=== PATIENT | male | born 1945 | race Caucasian/White ===

== ENCOUNTER 2016-05-27 14:05 | Observation (INO) | payer MEDICARE, MEDICAID ==
[2016-05-27 14:06] VITALS: BMI 29.5
[2016-05-27] MEDS ORDERED: SODIUM CHLORIDE 0.9% 10 ML FLUSH FLUSH PRN (14:34)
[2016-05-27] MEDS ORDERED: LORAZEPAM 2 MG/ML VIAL IV ONE ×2 (14:34→15:03)
[2016-05-27] MEDS ORDERED: NS 500 ML IV ONE (15:04)
[2016-05-27] MEDS ORDERED: LORAZEPAM 2 MG/ML VIAL IM ONE (15:11)
[2016-05-27 15:24] LABS: LEUKOCYTES/URINE NEG (NEGATIVE); NITRITE/URINE NEG (NEGATIVE); RBC/URINE 0-2 (0-2); URINE OCCULT BLOOD 1+ (NEG/TRACE); WBC/URINE 0-2 (0-2)
--- NOTE | 2016-05-27 15:26 | EDPRACDOC ---
ED Alcohol/Substance Withdrawl - General Information Information Source: Patient Mode of Arrival: Ambulance - History of Present Illness Onset: 2 WEEKS HPI: PT PRESENTS TODAY WITH REPORTED BLOODY STOOLS AND ALCOHOL WITHDRAWAL SYMPTOMS. LAST INTAKE 1 HOUR PRIOR TO COMING TO ED. PT STATES THAT HE HAS BEEN A HEAVY DRINKER SINCE HE WAS 11 YEARS OLD. HE USUALLY DRINKS 1/5 OF LIQUOR DAILY, BUT RECENTLY HAS ADDED 24 BEERS DAILY FOR THE PAST 2 WEEKS. PT STATES THAT HE WOULD LIKE HELP TO QUIT DRINKING. DENIES SI/HI. DENIES CP, SHOB, ABD PAIN, N/V/ D. NO APPARENT DISTRESS. Stopped/Reduced Use For: Hours Altered Mental Status For: Reports: None Relevant History: Reports: Alcoholism Current Substance of Use: Reports: Alcohol Circumstances: Reports: Withdrawal Symptoms Severity: Moderate Associated Signs & Symptoms: Reports: Anxiety, Nausea, Tremors, Diaphoresis <Violeta Kilgore - Last Filed: 05/27/16 15:28> <Nuzhat Macedo - Last Filed: 05/28/16 15:27> - General Information Chief Complaint: Alcohol Withdrawal Stated Complaint: DETOX,BLOODY STOOL Time Seen by Provider: 05/27/16 14:27 Home Medications: Home Medications Amlodipine [Norvasc] 10 mg PO DAILY 12/25/14 Metoprolol Tartrate [Lopressor] 12.5 mg PO BID 12/25/14 Nitroglycerin 0.4 mg SL [id number] PRN 12/25/14 Simvastatin [Zocor] 20 mg PO HS 12/25/14 Aspirin (Enteric Coated) [Halfprin] 81 mg PO DAILY 02/16/15 Pantoprazole Sodium 40 mg PO DAILY 03/12/15 Meloxicam 7.5 mg PO BID #20 tablet 06/10/15 Potassium Chloride [K-Dur] 10 meq PO DAILY 06/10/15 Hydrocodone Bit/Acetaminophen [[place] 5-325 Tablet] 1 tab PO Q4-6H PRN 07/21/15 Allergies/Adverse Reactions: Allergies Allergy/AdvReac Type Severity Reaction Status Date / Time No Known Allergies Allergy Verified 07/21/15 21:15 - Treatment Prior to ED Arrival Reported Medications/Treatment [facility] Treatment BLS IV No <Violeta Kilgore - Last Filed: 05/27/16 15:28> - Treatment Prior to ED Arrival Reported Medications/Treatment [facility] Treatment BLS IV No <MacedoLina ellisondy N - Last Filed: 05/28/16 15:27> ED Past Medical History - History Reviewed Yes Nurses notes reviewed and agree except as marked - Patient Medical History Neurological History: Reports: Cerebrovascular Accident (WITH MILD RESIDUAL LEFT SIDED WEAKNESS) Cardiac History: Reports: Coronary Artery Disease (S/P CABG), Hypertension, Congestive Heart Failure, Heart Attack, Cardiac Catheterization, CABG (2009 AT [facility]), Hypercholesterolemia Respiratory History: Reports: COPD, Pulmonary Embolism GI/ History: Reports: Gastroesophageal Reflux Musculoskeletal History: Reports: Arthritis (HANDS AND NECK) Psychological History: Reports: Depression (1992). Denies: Anxiety, Schizophrenia, Bipolar Disorder Systemic History: Denies: Cancer Surgical History: Reports: Cholecystectomy, CABG (2009 AT [facility]), Cardiac Catheterization - Family Medical History Reports: Hypertension, Cancer (MOM). Denies: Diabetes, Stroke, Cardiac Disorders - Social Medical History Smoking Status: Never smoker <Violeta Kilgore - Last Filed: 05/27/16 15:28> - Patient Medical History Cardiac History: Reports: Stress Test (DONE THIS PAST FEBRUARY [facility] IN [facility] Other (CHRONIC CHEST PAIN.) - Social Medical History ETOH: Alcoholic Lives With: Other (RELEASED FROM [facility]PROXIMATELY 3 MONTHS AGO. STATES HE HAS BEEN HOMELESS SINCE.) Lives In: Homeless <Lina Macedody N - Last Filed: 05/28/16 15:27> EDM Review of Systems - Review of Systems ROS Negative Except as Marked: Yes All systems reviewed and were negative except as marked Constitutional: No Symptoms Reported Ears: No Symptoms Reported Throat: No Symptoms Reported Nose: No Symptoms Reported Respiratory: No Symptoms Reported Cardiovascular: No Symptoms Reported Gastrointestinal: Melena Genitourinary: No Symptoms Reported Neurological: No Symptoms Reported Musculoskeletal: No Symptoms Reported Integumentary: No Symptoms Reported Psychiatric: Anxiety <Violeta Kilgore - Last Filed: 05/27/16 15:28> - Physical Exam Constitutional: No apparent distress, Alert (Awake), Other Oriented to: Time, Person, Place Last recorded Vital Signs: Last Vital Signs Temp 97.7 F 05/27/16 14:25 Pulse 84 05/27/16 15:16 Resp 20 05/27/16 15:16 BP 164/85 05/27/16 15:16 Pulse Ox 93 05/27/16 15:16 Oxygen Pulse Oxygen Saturation 93 O2 Device Room Air Oxygen Flow Rate Fraction of Inspired Oxygen ( FIO2) - HEENT Head: Normal Eye Exam: Normal Oropharynx: Normal Neck: Normal, Denies Pain, Midline - Respiratory/Cardiovascular Respiratory: Normal - CTA Cardiovascular: Normal - GI Palpation: Normal Tenderness: Non tender - Musculoskeletal Back: Normal Extremities: Normal - Integumentary Skin: Clammy, Flushed Lymphatics: Normal - Neurologic Cerebellar: Tremor Mood Description: Appropriate, Calm Thought: Coherent Perception: Normal <JameVioleta K - Last Filed: 05/27/16 15:28> - Physical Exam Last recorded Vital Signs: Last Vital Signs Temp 97.7 F 05/27/16 14:25 Pulse 84 05/27/16 15:16 Resp 20 05/27/16 15:16 BP 164/85 05/27/16 15:16 Pulse Ox 93 05/27/16 15:16 Oxygen Pulse Oxygen Saturation 93 O2 Device Room Air Oxygen Flow Rate Fraction of Inspired Oxygen ( FIO2) - GI Rectal Exam: Normal, Heme negative stool. negative: Blood Stool: Brown <Nuzhat Macedo N - Last Filed: 05/28/16 15:27> CIWA - Clinical [place] Withdrawal Assessment Re-evaluation 1 Nausea & Vomitting: No Nausea & No Vomiting Tremor: No Tremor Paroxysmal Sweats: No sweat visible Anxiety: No anxiety, at ease Agitation: Normal activity Tactile Disturbances: None Auditory Disturbances: None Visual Disturbances: None Headache, Fullness in Head: Not Present Orientation & clouding of Sensorium: Oriented and can do serial additions Total CIWA Score: 0 Re-evaluation 2 Nausea & Vomitting: No Nausea & No Vomiting Tremor: Not visible, but can be felt fingertip to fingertip Paroxysmal Sweats: No sweat visible Anxiety: No anxiety, at ease Agitation: Normal activity Tactile Disturbances: None Auditory Disturbances: None Visual Disturbances: None Headache, Fullness in Head: Not Present Orientation & clouding of Sensorium: Oriented and can do serial additions Total CIWA Score: 1 <Nuzhat Macedo N - Last Filed: 05/28/16 15:27> Initial Evaluation Apperance: Casual, Soiled, Stated Age Attitude: Cooperative Mood: Euthymic Affect: Congruent w/ mood Insight: Good Judgement: Good Memory Description: Intact Delusion Description: Reports: Not Present Hallucinations Severity: Reports: None Hallucinations affecting more than one sensory system: No <Violeta Kilgore - Last Filed: 05/27/16 15:28> ED Alcohol/Sub/Withdrawal Exam - Neurologic Oriented to: Time, Person, Place Stimuli Response: Verbal Stimuli Memory Impairment: Normal CN: Normal Motor Function Unable to Test or Normal: Normal Cerebellar Function: Tremor Thought: Coherent Affect: Appropriate Perception: Normal Insight: Below Average Judgement: Below Average <Violeta Kilgore - Last Filed: 05/27/16 15:28> - EKG EKG #1 EKG Time: 15:14 -: Yes EKG interpreted by me Rate: bpm: 78 [place]: Normal Rhythm: NSR Block: None Hypertrophy: None ST: Normal <Violeta Kilgore - Last Filed: 05/27/16 15:28> - Re-evaluation Re-evaluation 1 Re-evaluation Time: 16:02 (WILL APPEARING VERY COMFORTABLE. SEE CIWA SCORE) UNCLEAR PATIENT 'S MOTIVATION. HE STATES HE DETOX BECAUSE HE IS TIRED OF BEING IN CHRONIC AND THE WRAP IS OF ALCOHOL. HOWEVER IS CURRENTLY HOMELESS HE HAS TRIED TO FIND A PLACE TO STAY ALL DAY LONG (WITH FRIENDS OR CHART HOUSE) AND HAS BEEN UNSUCCESSFUL WITH THIS. Re-evaluation 2 Re-evaluation Time: 18:00 PATIENT LYING PERFECTLY STILL WHEN HE IS ALONE, WITNESSED THROUGH THE WINDOW. HOWEVER, WHEN A HEALTHCARE PROVIDER WALKS IN HIS ROOM, HE STARTS SHAKING FORCEFULLY. WHEN THE PROVIDER LEAVES, HE RETURNS TO LAYING STILL. - Results 05/27/16 15:20 05/27/16 15:20 WBC 8.2 xk/uL (3.8-10.8) 05/27/16 15:20 RBC 4.17 xM/uL (4.70-6.10) L 05/27/16 15:20 Hgb 12.7 g/dL (14.0-18.0) L 05/27/16 15:20 Hct 37.3 % (42-52) L 05/27/16 15:20 MCV 90 fL (80-94) 05/27/16 15:20 MCH 30.5 pg (27-32) 05/27/16 15: MCHC 34.1 g/dl (33-36) 05/27/16 15:20 RDW 15.6 % (11.5-14.5) H 05/27/16 15:20 Plt Count 219 xk/uL (130-400) 05/27/16 15:20 MPV 8.3 fL (7.4-10.4) 05/27/16 15:20 Neut % (Auto) 58.3 % (45-76) 05/27/16 15:20 Lymph % (Auto) 27.3 % (17-44) 05/27/16 15:20 [place] % (Auto) 10.2 % (3-10) H 05/27/16 15:20 Eos % (Auto) 3.1 % (0-5) 05/27/16 15:20 Baso % (Auto) 1.1 % (0-2) 05/27/16 15:20 Absolute Neuts (auto) 4.76 xk/uL (1.7-8.2) 05/27/16 15:20 Absolute Lymphs (auto) 2.21 xk/uL (0.65-4.75) 05/27/16 15:20 Sodium 139 mEq/L (137-146) 05/27/16 15:20 Potassium 3.9 mEq/L (3.5-5.1) 05/27/16 15:20 Chloride 103 mEq/L (98-107) 05/27/16 15:20 Carbon Dioxide 21 mMOL/L (22-33) L 05/27/16 15:20 Anion Gap 19 mEq/L (8-16) H 05/27/16 15:20 BUN 10 MG/DL (9-20) 05/27/16 15:20 Creatinine 0.90 MG/DL (0.66-1.25) 05/27/16 15:20 Estimated GFR (MDRD) > 60 mL/min (>=60) 05/27/16 15:20 Glucose 80 MG/DL (70-99) 05/27/16 15:20 Calculated Osmolality 266 MOs/Kg (270-290) L 05/27/16 15:20 Calcium 8.9 MG/DL (8.4-10.2) 05/27/16 15:20 Corrected Calcium 9.1 MG/DL (8.4-10.2) 05/27/16 15:20 Total Bilirubin 0.8 MG/DL (0.2-1.3) 05/27/16 15:20 AST 24 IU/L (17-59) 05/27/16 15:20 ALT 40 IU/L (21-72) 05/27/16 15:20 Alkaline Phosphatase 62 IU/L (50-160) 05/27/16 15:20 Troponin I < 0.01 ng/mL (<.04) 05/27/16 15:20 Total Protein 6.8 G/DL (6.3-8.2) 05/27/16 15:20 Albumin 3.8 G/DL (3.5-5.0) 05/27/16 15:20 Urine Color Yellow 05/27/16 15:00 Urine Clarity Clear 05/27/16 15:00 Urine pH 5.0 (5.0-8.0) 05/27/16 15:00 Ur Specific Challenge 1.005 (1.003-1.035) 05/27/16 15:00 Urine Protein Neg (NEG/TRACE) 05/27/16 15:00 Urine Glucose (UA) Neg (NEGATIVE) 05/27/16 15:00 Urine Ketones Neg (NEGATIVE) 05/27/16 15:00 Urine Occult Blood 1+ (NEG/TRACE) H 05/27/16 15:00 Urine Nitrite Neg (NEGATIVE) 05/27/16 15:00 Urine Bilirubin Neg (NEGATIVE) 05/27/16 15:00 Urine Urobilinogen <2.0 MG/DL (0-1) 05/27/16 15:00 Ur Leukocyte Esterase Neg (NEGATIVE) 05/27/16 15:00 Urine RBC 0-2 (0-2) 05/27/16 15:00 Urine WBC 0-2 (0-2) 05/27/16 15:00 Ur Epithelial Cells Occ 05/27/16 15:00 Urine Bacteria Few (NEG/FEW) 05/27/16 15:00 Urine Mucus Occ (NEG/OCC) 05/27/16 15:00 Urine Opiates Screen Neg (NEGATIVE) 05/27/16 15:00 Ur Oxycodone Screen Neg (NEGATIVE) 05/27/16 15:00 Urine Methadone Screen Neg (NEGATIVE) 05/27/16 15:00 Ur Barbiturates Screen Neg (NEGATIVE) 05/27/16 15:00 Ur Tricyclics Screen Neg (NEGATIVE) 05/27/16 15:00 Ur Phencyclidine Scrn Neg (NEGATIVE) 05/27/16 15:00 Ur Amphetamines Screen Neg (NEGATIVE) 05/27/16 15:00 U Methamphetamines Scrn Neg (NEGATIVE) 05/27/16 15:00 Urine MDMA Screen Neg (NEGATIVE) 05/27/16 15:00 U Benzodiazepines Scrn Neg (NEGATIVE) 05/27/16 15:00 Urine Cocaine Screen Neg (NEGATIVE) 05/27/16 15:00 Ur THC Screen Neg (NEGATIVE) 05/27/16 15:00 Plasma/Serum Ethyl Alc 0.08 % (<0.01) H 05/27/16 15:20 Lab Results 05/27/16 05/27/16 05/27/16 15:20 15:20 15:00 WBC 8.2 RBC 4.17 L Hgb 12.7 L Hct 37.3 L MCV 90 MCH 30.5 MCHC 34.1 RDW 15.6 H Plt Count 219 MPV 8.3 Neut % (Auto) 58.3 Lymph % (Auto) 27.3 [place] % (Auto) 10.2 H Eos % (Auto) 3.1 Baso % (Auto) 1.1 Absolute Neuts (auto) 4.76 Absolute Lymphs (auto) 2.21 Sodium 139 Potassium 3.9 Chloride 103 Carbon Dioxide 21 L Anion Gap 19 H BUN 10 Creatinine 0.90 Estimated GFR (MDRD) > 60 Glucose 80 Calculated Osmolality 266 L Calcium 8.9 Corrected Calcium 9.1 Total Bilirubin 0.8 AST 24 ALT 40 Alkaline Phosphatase 62 Troponin I < 0.01 Total Protein 6.8 Albumin 3.8 Urine Color Yellow Urine Clarity Clear Urine pH 5.0 Ur Specific Challenge 1.005 Urine Protein Neg Urine Glucose (UA) Neg Urine Ketones Neg Urine Occult Blood 1+ H Urine Nitrite Neg Urine Bilirubin Neg Urine Urobilinogen <2.0 Ur Leukocyte Esterase Neg Urine RBC 0-2 Urine WBC 0-2 Ur Epithelial Cells Occ Urine Bacteria Few Urine Mucus Occ Urine Opiates Screen Ur Oxycodone Screen Urine Methadone Screen Ur Barbiturates Screen Ur Tricyclics Screen Ur Phencyclidine Scrn Ur Amphetamines Screen U Methamphetamines Scrn Urine MDMA Screen U Benzodiazepines Scrn Urine Cocaine Screen Ur THC Screen Plasma/Serum Ethyl Alc 0.08 H 05/27/16 15:00 WBC RBC Hgb Hct MCV MCH MCHC RDW Plt Count MPV Neut % (Auto) Lymph % (Auto) [place] % (Auto) Eos % (Auto) Baso % (Auto) Absolute Neuts (auto) Absolute Lymphs (auto) Sodium Potassium Chloride Carbon Dioxide Anion Gap BUN Creatinine Estimated GFR (MDRD) Glucose Calculated Osmolality Calcium Corrected Calcium Total Bilirubin AST ALT Alkaline Phosphatase Troponin I Total Protein Albumin Urine Color Urine Clarity Urine pH Ur Specific Challenge Urine Protein Urine Glucose (UA) Urine Ketones Urine Occult Blood Urine Nitrite Urine Bilirubin Urine Urobilinogen Ur Leukocyte Esterase Urine RBC Urine WBC Ur Epithelial Cells Urine Bacteria Urine Mucus Urine Opiates Screen Neg Ur Oxycodone Screen Neg Urine Methadone Screen Neg Ur Barbiturates Screen Neg Ur Tricyclics Screen Neg Ur Phencyclidine Scrn Neg Ur Amphetamines Screen Neg U Methamphetamines Scrn Neg Urine MDMA Screen Neg U Benzodiazepines Scrn Neg Urine Cocaine Screen Neg Ur THC Screen Neg Plasma/Serum Ethyl Alc - Additional Information I THINK THE PATIENT IS USING THE ED FOR SECONDARY GAIN (HOUSING). HOWEVER, GIVEN HIS AGE AND ALCOHOL ABUSE, ODETTE OR DT ARE POSSIBLE. WILL MONITOR OVERNIGHT. DISCHARGE MAY BE REASONABLE IN THE AM IF STABLE OVERNIGHT. <Nuzhat Macedo N - Last Filed: 05/28/16 15:27> <Violeat Kilgore - Last Filed: 05/27/16 15:28> - Departure Disposition: Admit to <Nuzhat Macedo - Last Filed: 05/28/16 15:27> - Departure Final Diagnosis: Alcohol abuse, Malingering, Chronic chest pain
[2016-05-27 15:33] LABS: ALL NEG? YES; MDMA* NEG (NEGATIVE); METHAMPHETAMINES NEG (NEGATIVE); OXYCODONE NEG (NEGATIVE)
[2016-05-27 15:34] LABS: AUTOMATED BASOPHIL 1.1 % (0-2); AUTOMATED EOSINOPHIL 3.1 % (0-5); AUTOMATED LYMPH 27.3 % (17-44); AUTOMATED MONOCYTE 10.2 % (3-10); AUTOMATED NEUTROPHIL 58.3 % (45-76); MPV 8.3 fL (7.4-10.4)
[2016-05-27 15:44] LABS: BLOOD UREA NITROGEN 10 MG/DL (9-20); CALC CORRECTED 9.1 MG/DL (8.4-10.2); CALCIUM 8.9 MG/DL (8.4-10.2); CALCULATED OSMOLALITY 266 MOs/Kg (270-290); CHLORIDE 103 mEq/L (98-107); ETOH-MGDL 78 mg/dL; GLUCOSE 80 MG/DL (70-99); SODIUM LEVEL 139 mEq/L (137-146); TOTAL PROTEIN 6.8 G/DL (6.3-8.2)
--- NOTE | 2016-05-27 15:49 | DIRPT ---
CLINICAL DATA: Bloody stools and alcohol withdrawal. History of hypertension congestive heart failure. History of coronary artery disease. EXAM: PORTABLE CHEST 1 VIEW COMPARISON: 05/26/2016. FINDINGS: Prior CABG. Heart size normal. No pulmonary venous congestion. Mild bibasilar atelectasis and/or infiltrates. No pleural effusion or pneumothorax. IMPRESSION: 1. Mild bibasilar atelectasis and/or infiltrates. 2. Prior CABG. Cardiomegaly. No pulmonary venous congestion. Electronically Signed By: Papito Elliott On: 05/27/2016 15:46
[2016-05-27 16:01] LABS: PARTIAL THROMB. TIME 26.3 SEC (22-35); PT-INR 1.1
[2016-05-27] MEDS ORDERED: THIAMINE 100 MG TAB PO ONE (17:50)
[2016-05-27] MEDS ORDERED: CHLORDIAZEPOXIDE 25 MG CAP PO SCH (18:00)
[2016-05-27] MEDS: CHLORDIAZEPOXIDE 25 MG CAP PO SCH (18:11)
[2016-05-28] MEDS: CHLORDIAZEPOXIDE 25 MG CAP PO SCH ×4 (00:47→17:55)
--- NOTE | 2016-05-28 15:33 | EDTUNOTE ---
Initial Evaluation Apperance: Casual, Soiled, Stated Age Attitude: Cooperative Mood: Euthymic Affect: Congruent w/ mood Insight: Good Judgement: Good Memory Description: Intact Delusion Description: Reports: Not Present Hallucinations Severity: Reports: None Hallucinations affecting more than one sensory system: No - SOAP Note Patient Problems: Active Problems Alcohol abuse (Acute) F10.10 Chronic chest pain (Acute) R07.9, G89.29 Malingering (Acute) Z76.5 Time Seen By Provider: 15:28 SOAP Note: PATIENT HAS DONE WELL OVERNIGHT, NO SIGNIFICANT WITHDRAWAL SIGNS OR SYMPTOMS. PT CONTINUES TO DO VOLUNTARY SHAKING WHEN STAFF APPROACH, OTHERWISE HE IS CALM WITHOUT TREMOR. C/W MALINGERING. AT THIS POINT, PT IS STABLE FOR DISCHARGE OR ANY PSYCHIATRIC DISPOSITION. HOWEVER, THE PROBLEM IS THE CURRENT SNOW STORM PREVENTS TRAVEL TO ANY DETOX / REHAB FACILITY OR TO HOMELESS NURSING HOME. General: Pleasant MALE No acute distress. Neuro: Alert Oriented, calm and cooperative HEENT: Normocephalic atraumatic. Sclerae nonicteric. Extraocular movements intact. Oral mucosa pink and moist. Neck: Supple. Nontender. Good range of motion. No masses. Trachea is midline. No cervical adenopathy. Lungs: Clear to auscultation. No rhonchi or wheezing. Heart: Regular rate and rhythm. No murmur. Abdomen: Soft, nontender, nondistended. No hepatosplenomegaly. No abdominal wall defects or masses. No guarding or rebound. Extremities: no cyanosis clubbing or edema. No palpable deformities. Skin: Warm and dry, no rashes
[2016-05-28 17:54] VITALS: TEMP 98.4
[2016-05-29] MEDS: CHLORDIAZEPOXIDE 25 MG CAP PO SCH ×2 (00:15→07:20)
[2016-05-29 06:36] VITALS: BP 178/87; PULSE 60
--- NOTE | 2016-05-29 08:38 | EDTUNOTE ---
Initial Evaluation Apperance: Casual, Soiled, Stated Age Attitude: Cooperative Mood: Euthymic Affect: Congruent w/ mood Insight: Good Judgement: Good Memory Description: Intact Delusion Description: Reports: Not Present Hallucinations Severity: Reports: None Hallucinations affecting more than one sensory system: No - SOAP Note Patient Problems: Active Problems Alcohol abuse (Acute) F10.10 Chronic chest pain (Acute) R07.9, G89.29 Malingering (Acute) Z76.5 SOAP Note: S: PT HAS NO PHYSICAL COMPLAINTS. O: PT A/O X 4 WITH SKIN P/W/D. CARDIAC: RRR, NO MURMURS, NO GALLOPS ABD: SOFT, NON-TENDER, NON-DISTENDED A: Alcohol abuse (Acute) F10.10 Chronic chest pain (Acute) R07.9, G89.29 Malingering (Acute) Z76.5 P: CONTINUING TO MONITOR FOR ALCOHOL WITHDRAWAL AND AWAITING PLACEMENT AT EITHER HOMELESS [facility] OR DETOX FACILITY
[2016-05-29] MEDS ORDERED: Docusate Sodium 100 MG CAP PO PRN (08:51)
[2016-05-29] MEDS ORDERED: LORAZEPAM 1 MG TAB PO PRN (08:51)
[2016-05-29] MEDS ORDERED: ZOLPIDEM TARTRATE 5 MG TAB PO PRN (08:51)
[2016-05-29] MEDS ORDERED: IBUPROFEN 400 MG TAB PO PRN (08:51)
[2016-05-29] MEDS ORDERED: ONDANSETRON HCL 4 MG ODT TAB PO PRN (08:51)
[2016-05-29] MEDS ORDERED: GUAIFENESIN 200 MG/10 ML UDC PO PRN (08:51)
[2016-05-29] MEDS ORDERED: MAGNESIUM HYDROXIDE 30 ML BOTTLE PO PRN (08:51)
[2016-05-29] MEDS ORDERED: NICOTINE 21 MG PATCH TOP SCH (09:00)
== END 2016-05-29 11:25 | disposition left against medical advice (07) ==
LOC: ED 14:05 → EDINP 17:52 → TUOBSINP 19:51 → EDINP 05-28 19:04 → TUOBSINP 05-29 07:13
PROVIDERS: ADMIT Emergency Medicine; ATTEND Emergency Medicine
DX: F10.20 Alcohol dependence, uncomplicated (principal); Y90.9 Presence of alcohol in blood, level not specified; G89.29 Other chronic pain; R07.9 Chest pain, unspecified; Z76.5 Malingerer [conscious simulation]; Z59.0 Homelessness; Z79.82 Long term (current) use of aspirin; Z79.899 Other long term (current) drug therapy; Z95.1 Presence of aortocoronary bypass graft; I10 Essential (primary) hypertension; E78.00 Pure hypercholesterolemia, unspecified; K21.9 Gastro-esophageal reflux disease without esophagitis; J44.9 Chronic obstructive pulmonary disease, unspecified; Z86.711 Personal history of pulmonary embolism; I25.10 Atherosclerotic heart disease of native coronary artery without angina pectoris
CPT/HCPCS: 36415; 71010; 80053; 80307; 81001; 84484; 85025; 85610; 85730; 93005; 96372; 99285; A9270; G0378; J2060; J3490

== ENCOUNTER 2016-05-29 22:11 | Emergency (ER) | payer MEDICAID, MEDICARE ==
[2016-05-29 22:12] VITALS: BMI 29.5
[2016-05-29 22:35] VITALS: TEMP 97.8
[2016-05-29 23:29] VITALS: BP 149/89; PULSE 81
== END 2016-05-29 23:40 | disposition left against medical advice (07) ==
LOC: ED 22:11
DX: R07.9 Chest pain, unspecified (principal)
CPT/HCPCS: 93005; 99282

== ENCOUNTER 2016-05-30 02:55 | Emergency (ER) | payer MEDICARE, MEDICAID ==
[2016-05-30 02:55] VITALS: BMI 29.5
[2016-05-30 03:09] VITALS: TEMP 97.5
[2016-05-30] MEDS ORDERED: ASPIRIN (CHEWABLE) 81 MG TAB PO ONE (03:15)
[2016-05-30] MEDS ORDERED: SODIUM CHLORIDE 0.9% 10 ML FLUSH FLUSH PRN (03:15)
--- NOTE | 2016-05-30 03:18 | EDPRACDOC ---
- General Information Information Source: Patient Mode of Arrival: Ambulance - History of Present Illness Onset: UNIT ASSISTANT HPI: Pt c/o substernal chest pain radiating to L chest and shoulder with sob, nausea x 30 mins. Denies fever, cough, congestion, abd pain, changes in bowel or bladder, leg swelling rash. Pt states stress last yr in [place], cath 3 yrs ago that they used medication to treat findings. Chest Pain Location: Reports: Substernal, Left Chest Pain Radiation: Reports: Shoulder (L) Symptoms Occur: Reports: Gradually Cardiac Risk Factors: Reports: Hyperlipidemia, Hypertension Cardiac History of: Reports: Cardiac Cath, Stress Test, CABG Pain Came On: Reports: Gradually Pain Status: Present Now Pain Description: Reports: Aching Pain Severity: Mild Pain Worsens With: Reports: Nothing Pain Improves With: Reports: Nothing Associated Signs and Symptoms: Reports: SOB, Diaphoretic, Nausea <Billie Arciniega - Last Filed: 05/30/16 04:07> <Tracy Small - Last Filed: 05/30/16 08:12> - General Information Chief Complaint: Chest Pain Stated Complaint: chest pain Time Seen by Provider: 05/30/16 03:10 Home Medications: Home Medications Metoprolol Tartrate [Lopressor] 12.5 mg PO BID 12/25/14 Nitroglycerin 0.4 mg SL [id number] PRN 12/25/14 Aspirin (Enteric Coated) [Halfprin] 81 mg PO DAILY 02/16/15 Rosuvastatin Calcium [Crestor] 20 mg PO QHS 05/30/16 Unk Lisinopril 0 mg PO .SEE COMMENTS 05/30/16 Allergies/Adverse Reactions: Allergies Allergy/AdvReac Type Severity Reaction Status Date / Time No Known Allergies Allergy Verified 07/21/15 21:15 ED Past Medical History - History Reviewed Yes Nurses notes reviewed and agree except as marked - Patient Medical History Neurological History: Reports: Cerebrovascular Accident (WITH MILD RESIDUAL LEFT SIDED WEAKNESS) Cardiac History: Reports: Coronary Artery Disease (S/P CABG), Hypertension, Congestive Heart Failure, Heart Attack, Cardiac Catheterization, CABG (2009 AT [facility] [place]), Stress Test (DONE THIS PAST FEBRUARY [facility] IN [facility] Hypercholesterolemia Respiratory History: Reports: COPD, Pulmonary Embolism GI/ History: Reports: Gastroesophageal Reflux Musculoskeletal History: Reports: Arthritis (HANDS AND NECK) Psychological History: Denies: Depression, Anxiety, Schizophrenia, Bipolar Disorder Systemic History: Denies: Cancer Surgical History: Reports: Cholecystectomy, CABG (2010 AT [facility] [place]), Cardiac Catheterization - Family Medical History Reports: Hypertension, Cancer (MOM). Denies: Diabetes, Stroke, Cardiac Disorders - Social Medical History Smoking Status: Never smoker ETOH: Alcoholic Substance Abuse: None <Billie Arciniega - Last Filed: 05/30/16 04:07> EDM Review of Systems - Review of Systems Constitutional: No Symptoms Reported. negative: Fever, Chills, Weakness, Fatigue, Loss of Appetite Ears: No Symptoms Reported. negative: Pain, Hearing Loss, Drainage, Ear Pulling Throat: No Symptoms Reported. negative: Pain, Swelling Nose: No Symptoms Reported. negative: Congestion, Bleeding, Discharge, Injection, Swelling, Deformity, Ecchymosis, Tender, Abrasion, Laceration Mouth: No Symptoms Reported. negative: Pain, Drooling Respiratory: Shortness of Breath Cardiovascular: Chest Pain Gastrointestinal: Nausea Genitourinary: No Symptoms Reported. negative: Dysuria, Hematuria, Frequency, Discharge, Bleeding, Testicular Pain, Neurological: No Symptoms Reported. negative: Headache, Dizziness, Seizure, Numbness, Weakness, Speech Difficulty, Gait Difficulty Musculoskeletal: No Symptoms Reported. negative: Neck, Chestwall, Ribs, Back, Shoulder, Arm, Elbow, Forearm, Wrist, Hand, Pelvis, Hip, Femur, Knee, Leg, Ankle , Foot Integumentary: No Symptoms Reported. negative: Itching, Rash, Bruising, Wound Allergic/Immunologic: No Symptoms Reported. negative: Hives, Itching Hematologic: No Symptoms Reported. negative: Lymphadenopathy, Easy Bruising, Easy Bleeding Psychiatric: No Symptoms Reported. negative: Anxiety, Depression, Hallucinations, Insomnia, Suicidal <Billie Arciniega - Last Filed: 05/30/16 04:07> - Physical Exam Constitutional: ETOH Oriented to: Time, Person, Place Last recorded Vital Signs: Last Vital Signs Temp 97.5 F 05/30/16 03:02 Pulse 70 05/30/16 03:02 Resp 20 05/30/16 03:02 BP 144/85 05/30/16 03:02 Pulse Ox 96 05/30/16 03:02 Oxygen Pulse Oxygen Saturation 96 O2 Device Room Air Oxygen Flow Rate Fraction of Inspired Oxygen ( FIO2) - HEENT Head: Normal ( normocephalic) Eye Exam: Normal (PERRL, EOMI, Sclera white) Oropharynx: Normal (Pharynx:Moist without exudate,Gums-no swelling) Tympanic Membrane: Normal ENT EAC: Normal Nose: No Symptoms Reported (septum midline) Neck: Normal (FROM, trachea at midline) - Respiratory/Cardiovascular Respiratory: Normal - CTA (BBS clear to auscultation without adventitious sounds ) Cardiovascular: Normal (RRR without murmur, gallop or rub) - GI Auscultation: Normal (NABS) Palpation: Normal (Soft,No rebound or guarding, non distended) Tenderness: Non tender - Musculoskeletal Back: Normal (Non-Tender) Extremities: Normal (Normal tone, Pulses 2+ No cyanosis or edema, FROM) - Integumentary Skin: Normal, Warm, Dry Lymphatics: Normal (no adenopathy) - Neurologic Memory Impaired: Normal Motor Function: Normal (Normal tone, Pulses 2+ No cyanosis or edema, FROM) Mood Description: Normal Perception: Normal <Billie Arciniega - Last Filed: 05/30/16 04:07> - Physical Exam Last recorded Vital Signs: Last Vital Signs Temp 97.5 F 05/30/16 03:02 Pulse 68 05/30/16 07:50 Resp 18 05/30/16 07:50 BP 132/70 05/30/16 07:50 Pulse Ox 96 05/30/16 07:50 Oxygen Pulse Oxygen Saturation 96 O2 Device Room Air Oxygen Flow Rate Fraction of Inspired Oxygen ( FIO2) <Tracy Small - Last Filed: 05/30/16 08:12> ED Chest Pain Exam - Respiratory/Cardiovascular Respiratory: Normal - CTA (clear to auscultation without adventitious sounds) Cardiovascular/Chest: Normal (RRR without murmur, gallop or rub) Radial Pulse: Normal Edema: negative: 1+, 2+, 3+, 4+, 5, 6 Chest Palpation: Normal (No chest tenderness) <Billie Arciniega - Last Filed: 05/30/16 04:07> - Differential Diagnosis Angina, Gastritis, Myocardial infarction, Pancreatitis, Pneumonia, Pulmonary embolus - Action ASA given in the ED: Yes - EKG EKG #1 EKG Time: :17 Rate: bpm: 69 [place]: Normal Rhythm: NSR Block: None ST: Nonsp Comparison: 12/26/14 (no significant change) - Additional Information Stress test 12/26/14 negative, EF 49% Final disposition given to Dr Kaplan at 0407 <Billie Arciniega - Last Filed: 05/30/16 04:07> - Results 05/30/16 04:28 05/30/16 04:00 WBC 7.7 xk/uL (3.8-10.8) 05/30/16 04:28 RBC 4.30 xM/uL (4.70-6.10) L 05/30/16 04:28 Hgb 13.1 g/dL (14.0-18.0) L 05/30/16 04:28 Hct 39.2 % (42-52) L 05/30/16 04:28 MCV 91 fL (80-94) 05/30/16 04:28 MCH 30.5 pg (27-32) 05/30/16 04:28 MCHC 33.4 g/dl (33-36) 05/30/16 04:28 RDW 16.1 % (11.5-14.5) H 05/30/16 04:28 Plt Count 265 xk/uL (130-400) 05/30/16 04:28 MPV 8.6 fL (7.4-10.4) 05/30/16 04:28 Neut % (Auto) Cancelled 05/30/16 04:28 Lymph % (Auto) Cancelled 05/30/16 04:28 Sawyer % (Auto) Cancelled 05/30/16 04:28 Eos % (Auto) Cancelled 05/30/16 04:28 Baso % (Auto) Cancelled 05/30/16 04:28 Absolute Neuts (auto) Cancelled 05/30/16 04:28 Absolute Lymphs (auto) Cancelled 05/30/16 04:28 Seg Neuts % (Manual) 62 % (45-76) 05/30/16 04:28 Band Neutrophils % 0 % (0-5) 05/30/16 04:28 Lymphocytes % (Manual) 32 % (17-44) 05/30/16 04:28 Monocytes % (Manual) 3 % (0-10) 05/30/16 04:28 Eosinophils % (Manual) 3 % (0-5) 05/30/16 04:28 Absolute Neutrophils 4.77 xk/uL (1.7-8.2) 05/30/16 04:28 Absolute Lymphocytes 2.46 xk/uL (0.65-4.75) 05/30/16 04:28 Platelet Estimate Norm (NORMAL) 05/30/16 04:28 RBC Morphology 1+ aniso 05/30/16 04:28 PT 10.4 SEC (9.2-11.2) 05/30/16 04:28 INR 1.0 05/30/16 04:28 APTT 25.1 SEC (22-35) 05/30/16 04:28 D-Dimer Quant (PE/DVT) 720 ng/mL (<500) H 05/30/16 04:28 Sodium 144 mEq/L (137-146) 05/30/16 04:00 Potassium 3.7 mEq/L (3.5-5.1) 05/30/16 04:00 Chloride 106 mEq/L (98-107) 05/30/16 04:00 Carbon Dioxide 20 mMOL/L (22-33) L 05/30/16 04:00 Anion Gap 22 mEq/L (8-16) H 05/30/16 04:00 BUN 11 MG/DL (9-20) 05/30/16 04:00 Creatinine 0.80 MG/DL (0.66-1.25) 05/30/16 04:00 Estimated GFR (MDRD) > 60 mL/min (>=60) 05/30/16 04:00 Glucose 84 MG/DL (70-99) 05/30/16 04:00 Calculated Osmolality 275 MOs/Kg (270-290) 05/30/16 04:00 Calcium 9.5 MG/DL (8.4-10.2) 05/30/16 04:00 Total Bilirubin 0.6 MG/DL (0.2-1.3) 05/30/16 04:00 AST 35 IU/L (17-59) 05/30/16 04:00 ALT 33 IU/L (21-72) 05/30/16 04:00 Alkaline Phosphatase 78 IU/L (50-160) 05/30/16 04:00 Troponin I < 0.01 ng/mL (<.04) 05/30/16 07:27 Total Protein 8.0 G/DL (6.3-8.2) 05/30/16 04:00 Albumin 4.6 G/DL (3.5-5.0) 05/30/16 04:00 Lipase 198 U/L (23-300) 05/30/16 04:00 Plasma/Serum Ethyl Alc 0.22 % (<0.01) H 05/30/16 04:00 Lab Results 05/30/16 05/30/16 05/30/16 07:27 04:28 04:28 WBC 7.7 RBC 4.30 L Hgb 13.1 L Hct 39.2 L MCV 91 MCH 30.5 MCHC 33.4 RDW 16.1 H Plt Count 265 MPV 8.6 Neut % (Auto) Cancelled Lymph % (Auto) Cancelled Sawyer % (Auto) Cancelled Eos % (Auto) Cancelled Baso % (Auto) Cancelled Absolute Neuts (auto) Cancelled Absolute Lymphs (auto) Cancelled Seg Neuts % (Manual) 62 Band Neutrophils % 0 Lymphocytes % (Manual) 32 Monocytes % (Manual) 3 Eosinophils % (Manual) 3 Absolute Neutrophils 4.77 Absolute Lymphocytes 2.46 Platelet Estimate Norm RBC Morphology 1+ aniso PT 10.4 INR 1.0 APTT 25.1 D-Dimer Quant (PE/DVT) Sodium Potassium Chloride Carbon Dioxide Anion Gap BUN Creatinine Estimated GFR (MDRD) Glucose Calculated Osmolality Calcium Total Bilirubin AST ALT Alkaline Phosphatase Troponin I < 0.01 Total Protein Albumin Lipase Plasma/Serum Ethyl Alc 05/30/16 05/30/16 05/30/16 04:28 04:00 04:00 WBC RBC Hgb Hct MCV MCH MCHC RDW Plt Count MPV Neut % (Auto) Lymph % (Auto) Sawyer % (Auto) Eos % (Auto) Baso % (Auto) Absolute Neuts (auto) Absolute Lymphs (auto) Seg Neuts % (Manual) Band Neutrophils % Lymphocytes % (Manual) Monocytes % (Manual) Eosinophils % (Manual) Absolute Neutrophils Absolute Lymphocytes Platelet Estimate RBC Morphology PT INR APTT D-Dimer Quant (PE/DVT) 720 H Sodium 144 Potassium 3.7 Chloride 106 Carbon Dioxide 20 L Anion Gap 22 H BUN 11 Creatinine 0.80 Estimated GFR (MDRD) > 60 Glucose 84 Calculated Osmolality 275 Calcium 9.5 Total Bilirubin 0.6 AST 35 ALT 33 Alkaline Phosphatase 78 Troponin I < 0.01 Total Protein 8.0 Albumin 4.6 Lipase 198 Plasma/Serum Ethyl Alc 0.22 H Laboratory Results - last 24 hr 05/30/16 05/30/16 05/30/16 04:00 04:00 04:28 WBC RBC Hgb Hct MCV MCH MCHC RDW Plt Count MPV Neut % (Auto) Lymph % (Auto) Sawyer % (Auto) Eos % (Auto) Baso % (Auto) Absolute Neuts (auto) Absolute Lymphs (auto) Seg Neuts % (Manual) Band Neutrophils % Lymphocytes % (Manual) Monocytes % (Manual) Eosinophils % (Manual) Absolute Neutrophils Absolute Lymphocytes Platelet Estimate RBC Morphology PT INR APTT D-Dimer Quant (PE/DVT) 720 H Sodium 144 Potassium 3.7 Chloride 106 Carbon Dioxide 20 L Anion Gap 22 H BUN 11 Creatinine 0.80 Estimated GFR (MDRD) > 60 Glucose 84 Calculated Osmolality 275 Calcium 9.5 Total Bilirubin 0.6 AST 35 ALT 33 Alkaline Phosphatase 78 Troponin I < 0.01 Total Protein 8.0 Albumin 4.6 Lipase 198 Plasma/Serum Ethyl Alc 0.22 H 05/30/16 05/30/16 05/30/16 04:28 04:28 07:27 WBC 7.7 RBC 4.30 L Hgb 13.1 L Hct 39.2 L MCV 91 MCH 30.5 MCHC 33.4 RDW 16.1 H Plt Count 265 MPV 8.6 Neut % (Auto) Cancelled Lymph % (Auto) Cancelled Sawyer % (Auto) Cancelled Eos % (Auto) Cancelled Baso % (Auto) Cancelled Absolute Neuts (auto) Cancelled Absolute Lymphs (auto) Cancelled Seg Neuts % (Manual) 62 Band Neutrophils % 0 Lymphocytes % (Manual) 32 Monocytes % (Manual) 3 Eosinophils % (Manual) 3 Absolute Neutrophils 4.77 Absolute Lymphocytes 2.46 Platelet Estimate Norm RBC Morphology 1+ aniso PT 10.4 INR 1.0 APTT 25.1 D-Dimer Quant (PE/DVT) Sodium Potassium Chloride Carbon Dioxide Anion Gap BUN Creatinine Estimated GFR (MDRD) Glucose Calculated Osmolality Calcium Total Bilirubin AST ALT Alkaline Phosphatase Troponin I < 0.01 Total Protein Albumin Lipase Plasma/Serum Ethyl Alc Laboratory Results 05/30/16 04:28 05/30/16 04:00 - Additional Information PT'S CP IS ATYPICAL. I THINK MOST OF PT'S PROBLEM IS THAT HE IS HOMELESS, IT IS VERY COLD, AND NEEDED SOMEWHERE TO STAY OVERNIGHT. PT D/W ROMAN (TESSY) WHO WILL ATTEMPT PLACEMENT IN A [facility]. <Tracy Small - Last Filed: 05/30/16 08:12> <Billie Arciniega - Last Filed: 05/30/16 04:07> Decision Time to Discharge: 08:12 - Departure Yes I personally saw and evaluated the patient. Disposition: Home Education/Counseling Given To: Patient Education/Counseling Given Regarding: Diagnosis, Treatment, Follow Up <Tracy Small - Last Filed: 05/30/16 08:12> - Departure Final Diagnosis: Chest pain Qualifiers: Chest pain type: unspecified Qualified Code(s): R07.9 - Chest pain, unspecified Instructions: Chest Pain (ED) Referrals: None,No Provider [Primary Care Provider] - One Week Isaac Mccormick MD [Staff Physician] - One Week Cheri Howe MD [Staff Physician] - One Week
--- NOTE | 2016-05-30 04:14 | DIRPT ---
CLINICAL DATA: 70-year-old male with chest pain. EXAM: PORTABLE CHEST 1 VIEW COMPARISON: Chest radiograph dated 05/27/2016 FINDINGS: Single-view of the chest demonstrate minimal bibasilar atelectatic changes. No focal consolidation, pleural effusion, or pneumothorax. Stable cardiac silhouette. Median sternotomy wires. The osseous structures are otherwise unremarkable. IMPRESSION: No focal consolidation. Electronically Signed By: Mani Elkins M.D. On: 05/30/2016 04:11
[2016-05-30 04:23] LABS: BLOOD UREA NITROGEN 11 MG/DL (9-20); CALCIUM 9.5 MG/DL (8.4-10.2); CALCULATED OSMOLALITY 275 MOs/Kg (270-290); CHLORIDE 106 mEq/L (98-107); GLUCOSE 84 MG/DL (70-99); SODIUM LEVEL 144 mEq/L (137-146)
[2016-05-30 04:32] LABS: MPV 8.6 fL (7.4-10.4)
[2016-05-30 04:46] LABS: PARTIAL THROMB. TIME 25.1 SEC (22-35)
[2016-05-30 05:04] LABS: SEG NEUTROPHIL 62 % (45-76)
[2016-05-30] MEDS ORDERED: Pharmacy Review for Metformin - IV Contrast Given SCH (06:00)
[2016-05-30] MEDS ORDERED: ONDANSETRON HCL 4 MG/2 ML VIAL IV ONE (07:05)
[2016-05-30] MEDS ORDERED: MORPHINE 4 MG/ML INJECTION IV ONE (07:05)
[2016-05-30] MEDS ORDERED: OXYCODONE HCL 5 MG TABLET PO ONE (07:29)
[2016-05-30 08:40] VITALS: BP 153/80; PULSE 82
== END 2016-05-30 08:39 | disposition home or self-care (01) ==
LOC: ED 02:55
DX: R07.9 Chest pain, unspecified (principal); R06.02 Shortness of breath
CPT/HCPCS: 36415; 71010; 80053; 80307; 83690; 84484; 85007; 85027; 85379; 85610; 85730; 93005; 99284; A9270; J3490

== ENCOUNTER 2016-05-30 17:37 | Emergency (ER) | payer MEDICARE ==
[2016-05-30 17:37] VITALS: BMI 29.5
== END 2016-05-30 20:18 | disposition left against medical advice (07) ==
LOC: ED 17:37
DX: R07.9 Chest pain, unspecified (principal)

== ENCOUNTER 2016-06-01 11:50 | Emergency (ER) | payer MEDICARE, MEDICAID ==
[2016-06-01 12:30] VITALS: TEMP 99; BMI 29.5
--- NOTE | 2016-06-01 13:00 | EDPRACDOC ---
- General Information Chief Complaint: Medication Refill Stated Complaint: ELEVATED BP Time Seen by Provider: 06/01/16 12:51 Information Source: Patient Mode Of Arrival: Car Home Medications: Home Medications Aspirin (Enteric Coated) [Halfprin] 81 mg PO DAILY 02/16/15 Aspirin (Enteric Coated) [Halfprin] 81 mg PO DAILY #30 tab 06/01/16 Lisinopril 20 mg PO BID #30 tablet 06/01/16 Metoprolol Tartrate [Lopressor] 12.5 mg PO BID #30 tablet 06/01/16 Rosuvastatin Calcium [Crestor] 20 mg PO QHS #30 tablet 06/01/16 Allergies/Adverse Reactions: Allergies Allergy/AdvReac Type Severity Reaction Status Date / Time No Known Allergies Allergy Verified 06/01/16 12:02 - History of Present Illness Duration Without Medication: monday HPI: PT PRESENTS TODAY FOR MEDICATION REFILLS ON BP/CHOLESTEROL MEDS. NO S/S. Context: Reports: Ran out of Medication Medication for: Reports: Hypertension, Other Pain: Reports: None ED Past Medical History - History Reviewed Yes Nurses notes reviewed and agree except as marked - Patient Medical History Neurological History: Reports: Cerebrovascular Accident (WITH MILD RESIDUAL LEFT SIDED WEAKNESS) Cardiac History: Reports: Coronary Artery Disease (S/P CABG), Hypertension, Congestive Heart Failure, Heart Attack, Cardiac Catheterization, CABG (2009 AT [facility] [place]), Stress Test (DONE THIS PAST FEBRUARY [facility] IN [facility] Hypercholesterolemia Respiratory History: Reports: COPD, Pulmonary Embolism GI/ History: Reports: Gastroesophageal Reflux Musculoskeletal History: Reports: Arthritis (HANDS AND NECK) Psychological History: Denies: Depression, Anxiety, Schizophrenia, Bipolar Disorder Systemic History: Denies: Cancer Surgical History: Reports: Cholecystectomy, CABG (2009 AT [facility] [place]), Cardiac Catheterization - Family Medical History Reports: Hypertension, Cancer (MOM). Denies: Diabetes, Stroke, Cardiac Disorders - Social Medical History Smoking Status: Never smoker EDM Review of Systems - Review of Systems ROS Negative Except as Marked: Yes All systems reviewed and were negative except as marked Constitutional: No Symptoms Reported Respiratory: No Symptoms Reported Cardiovascular: No Symptoms Reported Gastrointestinal: No Symptoms Reported Neurological: No Symptoms Reported Musculoskeletal: No Symptoms Reported Integumentary: No Symptoms Reported - Physical Exam Constitutional: Alert (Awake), No apparent distress Oriented to: Time, Person, Place Last recorded Vital Signs: Last Vital Signs Temp 99 F 01/11/17 12:26 Pulse 82 06/01/16 12:26 Resp 18 06/01/16 12:26 BP 169/85 06/01/16 12:26 Pulse Ox 96 06/01/16 12:26 Oxygen Pulse Oxygen Saturation 96 O2 Device Room Air Oxygen Flow Rate Fraction of Inspired Oxygen ( FIO2) - HEENT Head: Normal Eye Exam: Normal Neck: Normal, Denies Pain, Midline - Respiratory/Cardiovascular Respiratory: Normal - CTA Cardiovascular: Normal - GI Palpation: Normal Tenderness: Non tender - Musculoskeletal Back: Normal Extremities: Normal - Integumentary Skin: Normal Lymphatics: Normal - Neurologic Cerebellar: Normal Mood Description: Normal Thought: Coherent Perception: Normal Decision Time to Discharge: 13:25 - Departure Disposition: Home Condition: Good Final Diagnosis: Medication refill Instructions: Medication Refill Education/Counseling Given To: Patient Education/Counseling Given Regarding: Diagnosis, Treatment, Follow Up Referrals: None,No Provider [Primary Care Provider] - One Week AIDE CISNEROS [NonStaff] - One Week Cheri Howe MD [Staff Physician] - One Week Prescriptions: Rosuvastatin Calcium [Crestor] 20 mg PO QHS #30 tablet Aspirin (Enteric Coated) [Halfprin] 81 mg PO DAILY #30 tab Lisinopril 20 mg PO BID #30 tablet Metoprolol Tartrate [Lopressor] 12.5 mg PO BID #30 tablet Forms: Primary / Family Care Contact Additional Instructions: PLEASE ESTABLISH A PCP FOR MEDICATION REFILLS.
[2016-06-01 13:33] VITALS: BP 153/93; PULSE 84
== END 2016-06-01 13:35 | disposition home or self-care (01) ==
LOC: ED 11:50 → EDMC 13:35
DX: Z76.0 Encounter for issue of repeat prescription (principal)
CPT/HCPCS: 99283